=== PATIENT | female | born 1990 ===

== ENCOUNTER 2019-01-12 16:43 | Emergency (ER) | payer SELFPAY ==
[2019-01-12 17:27] VITALS: BP 108/61; PULSE 97; RESP 16; TEMP 99; O2SAT 100
--- NOTE | 2019-01-12 17:45 | ED PDOC ---
Lower Extremity Pain/Injury Time Seen by Provider: 01/12/19 17:33 Chief Complaint (Nursing): Lower Extremity Problem/Injury Chief Complaint (Provider): Lower Extremity Problem/Injury History Per: Patient History/Exam Limitations: no limitations Onset/Duration Of Symptoms: Hrs (x3) Current Symptoms Are (Timing): Still Present Additional Complaint(s): Patient is a 28 y/o female with five previous surgeries to her right foot and ankle who presents to the ED for evaluation of worsening right foot and ankle pain onset three hours prior to arrival. Patient states she was climbing down steps that had been mopped which caused her to slip and land awkwardly. Pain is worse with weight bearing. Of note, patient was in the [employer] and as a result has experienced several right foot and ankle complications including torn ligaments, decreased cartilage, fractures, sprains, and nerve damage. Patient was seen two weeks ago by her pain management doctor in [place] who prescribed Percocet and Gabapentin, who also is her foot doctor. She reports she does not have any medications left and did not take anything for pain. patient is currently on her period. PCP: None Past Medical History Reviewed: Historical Data, Nursing Documentation, Vital Signs Vital Signs: Last Vital Signs Temp 99.0 F 01/12/19 17:27 Pulse 97 H 01/12/19 17:27 Resp 16 01/12/19 17:27 BP 108/61 01/12/19 17:27 Pulse Ox 100 01/12/19 17:27 Primary Care Provider: Mayi Graham - Medical History PMH: No Chronic Diseases - Surgical History Other surgeries: x5 right foot and ankle surgeries - Family History Family History: States: No Known Family Hx - Home Medications Home Medications: Ambulatory Orders Medication Instructions Recorded Ibuprofen [Motrin Tab] 600 mg PO Q6 #30 tab 10/25/16 predniSONE [predniSONE Tab] 60 mg PO DAILY #9 tab 10/25/16 Ibuprofen [Motrin Tab] 800 mg PO Q8 PRN #16 tab 01/12/19 - Allergies Allergies/Adverse Reactions: Allergies Allergy/AdvReac Type Severity Reaction Status Date / Time No Known Allergies Allergy Verified 01/12/19 17:25 Review of Systems ROS Statement: Except As Marked, All Systems Reviewed And Found Negative Musculoskeletal: Positive for: Foot Pain (right), Other (right ankle pain) Neurological: Negative for: Weakness, Numbness Physical Exam - Reviewed Nursing Documentation Reviewed: Yes Vital Signs Reviewed: Yes - Physical Exam Comments: GENERAL APPEARANCE: Patient is awake, alert, oriented x 3, in no acute distress. SKIN: Warm, dry; (-) cyanosis. LOWER EXTREMITY: (+) very mild left medial and lateral malleolus tenderness. (+) anterior ankle and top of foot tenderness. (+) FROM (-) swelling. (-) ecchymosis. (-) deformity. dp 2+. cap refill less than 2 seconds. Achilles tendon intact and nontender. CARDIOVASCULAR: (+) distal pulse. NEUROLOGIC: (+) distal sensation. - ECG O2 Sat by Pulse Oximetry: 100 (RA) Pulse Ox Interpretation: Normal Medical Decision Making Medical Decision Making: Time: 1736 Impression: Right Ankle and Foot Pain Plan: Ankle Right 3 Views Routine [Rad] Foot Right 3 Views Routine [Rad] [place] [employer] Rx search, most recent results below, the rest is scanned in 12/20/2018 12/20/2018 OXYCODONE-ACETAMINOPHEN [id number] [facility] [id number] [place] ([id number]) 0 30.68 [facility] [place] 10/26/2018 10/26/2018 OXYCODONE-ACETAMINOPHEN [id number] [facility] [id number] HEALT ([id number]) 0 7.5 [facility] [employer] [place] Time: 1813 Right Ankle FINDINGS: BONES: Normal. No fracture. JOINTS: Normal. No osteoarthritis. Ankle mortise maintained. Talar dome intact SOFT TISSUES: Normal. OTHER FINDINGS: None. IMPRESSION: Normal right ankle radiographs. Time: 1814 Right Foot FINDINGS: BONES: Normal. No fracture. JOINTS: Normal. SOFT TISSUES: Normal. OTHER FINDINGS: None. IMPRESSION: No acute findings related to/ accounting for the clinical presentation. 18:20 re eval pt is feeling okay, nehemias wrap and air cast will be applied for ankle sprain pt notes she sees her pain management doctor, who also takes care of her ankle/foot injuries, in 2 weeks when he is back from vacation Discussed results, diagnosis, treatment, return precautions and f/u with pt who is understanding, in agreement and stable for dc Scribe Attestation: Documented by Chaka Abraham, acting as a scribe for Min Nj PA-C. Provider Scribe Attestation: All medical record entries made by the Scribe were at my direction and personally dictated by me. I have reviewed the chart and agree that the record accurately reflects my personal performance of the history, physical exam, medical decision making, and the department course for this patient. I have also personally directed, reviewed, and agree with the discharge instructions and disposition. Disposition - Clinical Impression Clinical Impression: Sprain of ankle, right - Patient ED Disposition Is Patient to be Admitted: No Counseled Patient/Family Regarding: Studies Performed, Diagnosis, Need For Followup, Rx Given - Disposition Referrals: Dorian Ayala MD [Medical Doctor] - Podiatry Clinic [Outside] Mel Pacheco DPM [Staff Provider] - Disposition: Routine/Home Disposition Time: 18:29 Condition: STABLE Additional Instructions: Thank you for letting us take care of you today. The emergency medical care you received today was directed at your acute symptoms. If you were prescribed any medication, please fill it and take as directed. Rest, ice and elevate your foot. Wear nehemias wrap for compression and air cast for support. It may take several days for your symptoms to resolve. Return to the Emergency Department if your symptoms worsen, do not improve, or if you have any other problems. Please contact your doctor in 2 days for re-evaluation and follow up / or call one of the physicians/clinics you have been referred to that are listed on the Patient Visit Information form that is included in your discharge packet. Bring any paperwork you were given at discharge with you along with any medications you are taking to your follow up visit. Our treatment cannot replace ongoing medical care by a primary care provider (PCP) outside of the emergency department. Prescriptions: Ibuprofen [Motrin Tab] 800 mg PO Q8 PRN #16 tab PRN Reason: Pain, Moderate (4-7) Instructions: Ankle Sprain (DC), Foot Sprain (DC) Print Language: ARABIC - POA Present On Arrival: None
--- NOTE | 2019-01-12 18:18 | RAD ---
Date of service: 01/12/2019 PROCEDURE: Right Ankle Radiographs. HISTORY: Right lower extremity injury. COMPARISON: 05/11/2010 right ankle radiographs January 12, 2019 right foot reported separately. TECHNIQUE: 3 views obtained. FINDINGS: BONES: Normal. No fracture. JOINTS: Normal. No osteoarthritis. Ankle mortise maintained. Talar dome intact SOFT TISSUES: Normal. OTHER FINDINGS: None. IMPRESSION: Normal right ankle radiographs.
--- NOTE | 2019-01-12 18:19 | RAD ---
Date of service: 01/12/2019 PROCEDURE: Right Foot Radiographs. HISTORY: Unspecified right lower extremity injury. COMPARISON: 05/11/2010. Right foot radiographs 6 TECHNIQUE: 3 views obtained. FINDINGS: BONES: Normal. No fracture. JOINTS: Normal. SOFT TISSUES: Normal. OTHER FINDINGS: None. IMPRESSION: No acute findings related to/ accounting for the clinical presentation.
== END 2019-01-12 19:35 | disposition home or self-care (01) ==
LOC: H.ER 16:43
DX: S93.401A Sprain of unspecified ligament of right ankle, initial encounter (principal); W10.9XXA Fall (on) (from) unspecified stairs and steps, initial encounter